=== PATIENT | female | born 1960 | race Caucasian/White ===

== ENCOUNTER → 2019-07-18 10:48 | Outpatient (BNVA) | payer BC, SELFPAY | PROVIDERS: Family Provider Internal Medicine; PCP Internal Medicine; Visit Provider Specialist | DX: G61.81 Chronic inflammatory demyelinating polyneuritis (principal); Z87.891 Personal history of nicotine dependence | CPT/HCPCS: 95970; 99214 ==

== ENCOUNTER → 2020-01-14 12:07 | Outpatient (BNVA) | payer BC, SELFPAY | PROVIDERS: Family Provider Internal Medicine; PCP Internal Medicine; Visit Provider Specialist | DX: G61.81 Chronic inflammatory demyelinating polyneuritis (principal); E53.8 Deficiency of other specified B group vitamins; F41.9 Anxiety disorder, unspecified; F32.9 Major depressive disorder, single episode, unspecified; Z98.1 Arthrodesis status; Z87.891 Personal history of nicotine dependence | CPT/HCPCS: 99214 ==

== ENCOUNTER → 2020-04-21 11:31 | Outpatient (BNVA) | payer BC, SELFPAY | PROVIDERS: Family Provider Internal Medicine; PCP Internal Medicine; Visit Provider Specialist | DX: G61.81 Chronic inflammatory demyelinating polyneuritis (principal); R20.0 Anesthesia of skin; Z87.891 Personal history of nicotine dependence | CPT/HCPCS: 95913 ==

== ENCOUNTER → 2020-07-30 10:55 | Outpatient (BNVA) | payer BC, SELFPAY | PROVIDERS: Family Provider Internal Medicine; PCP Internal Medicine; Visit Provider Internal Medicine Rheumatology | DX: G61.81 Chronic inflammatory demyelinating polyneuritis (principal); L93.0 Discoid lupus erythematosus; R76.8 Other specified abnormal immunological findings in serum; Z79.899 Other long term (current) drug therapy; Z11.59 Encounter for screening for other viral diseases; Z11.1 Encounter for screening for respiratory tuberculosis; Z13.820 Encounter for screening for osteoporosis; Z79.52 Long term (current) use of systemic steroids; M25.559 Pain in unspecified hip; I73.00 Raynaud's syndrome without gangrene; Z87.891 Personal history of nicotine dependence | CPT/HCPCS: 99204 ==

== ENCOUNTER 2020-07-30 12:59 | Outpatient (CLI) | payer BC, SELFPAY ==
--- NOTE | 2020-07-30 13:15 | XR_ITS ---
WS: [id number] XR pelvis 1-2V* 13432 REASON FOR EXAM: L93.0 - Discoid lupus erythematosus Unable to determine history more relevant to the examination. FINDINGS: Multiple surgical clips in the right lower quadrant. Lower abdominal bowel gas pattern is unremarkable. No retroperitoneal air. Degenerative spondylosis at L5-S1. Mild degenerative arthropathy in both hip joints. No focal bony pelvic abnormality. XR/XR pelvis 1-2V* [id number] IMPRESSION: No acute abnormality.
[2020-07-30 14:21] LABS: Basophils % 0.6 %; Eosinophils % 0.8 %; Hematocrit 38.2 % (37.0-47.0); Hemoglobin 12.6 g/dL (11.5-15.3); Lymphocytes # 0.9 10^3/uL (0.8-4.8); Lymphocytes % 18.4 %; Mean Corpuscular Hemoglobin 30.3 pg (28.0-34.0); Mean Corpuscular Volume 91.8 fL (81-99); Mean Platelet Volume 10.3 fL (7.4-10.4); Monocytes # 0.5 10^3/uL (0.2-0.9); Monocytes % 10.3 %; Neutrophils # 3.45 10^3/uL (1.8-7.7); Neutrophils % 69.7 %; Nucleated Red Blood Cells % 0 %; Platelet Count 202 10^3/cmm (130-400); Red Blood Count 4.16 10^6/uL (4.1-5.3); Red Cell Distribution Width 12.7 % (12.1-15.1)
[2020-07-30 14:44] LABS: Specific Gravity, Urine 1.005 (1.005-1.030); Urine Appearance Hazy (CLEAR); Urine Color Yellow (Yellow); pH Urine 7 (5-7)
[2020-07-30 14:45] LABS: Bilirubin Urine Neg (Negative); Blood Urine Neg (Negative); Glucose Urine UA Norm (Normal); Ketones Urine Negative (Negative); Leukocyte Esterase Urine Negative (Negative); Nitrate Urine Negative (Negative); Protein Urine Neg (Negative); Urobilinogen Urine Norm (Negative)
[2020-07-30 14:55] LABS: Urine Creatinine 66 mg/dL (28-217); Urine Protein Random 12 mg/dL
[2020-07-30 15:06] LABS: Add Urine Culture? No; Bacteria Urine TRACE /hpf; Squamous Epithelial Cell Urine 25-40 /hpf (0-5)
[2020-07-30 15:08] LABS: Hepatitis B Surface Antigen Non-Reactive (Nonreactive); Hepatitis C Virus Antibody Non-Reactive (Nonreactive)
[2020-07-30 15:10] LABS: 25 Hydroxy Vitamin D 15 ng/mL (30-100); Alanine Aminotransferase 7 U/L (0-33); Alkaline Phosphatase 110 IU/L (35-105); Aspartate Amino Transferase 16 U/L (0-32); C Reactive Protein 8.5 mg/L (0.0-4.9); Globulin 4.8 g/dL (1.3-4.6); Glomerular Filtration Rate 72.9 mL/min (90-130); Total Bilirubin 0.2 mg/dL (0.15-1.2); Total Protein 8.8 g/dL (6.6-8.7)
[2020-07-30 15:24] LABS: Erythrocyte Sedimentation Rate 93 mm/hr (0-15)
[2020-07-30 15:54] LABS: Hepatitis B Core AB, Total Reactive (Nonreactive)
[2020-07-31 14:58] LABS: THYROID PEROXIDASE ANTIBODIES 42 IU/mL (<9)
[2020-08-01 12:48] LABS: COMPLEMENT COMPONENT C3C 141 mg/dL (83-193); COMPLEMENT COMPONENT C4C 16 mg/dL (15-57); COMPLEMENT, TOTAL (CH50) >60 U/mL (31-60)
[2020-08-01 14:23] LABS: CENTROMERE B ANTIBODY <1.0 NEG AI (<1.0 NEG); JO-1 ANTIBODY <1.0 NEG AI (<1.0 NEG); Quantiferon Mitogen 7.22 IU/mL; Quantiferon Nil 0.02 IU/mL; Quantiferon TB Gold NEGATIVE (NEGATIVE); RNP ANTIBODY <1.0 NEG AI (<1.0 NEG); SCL-70 ANTIBODY <1.0 NEG AI (<1.0 NEG); SJOGREN'S ANTIBODY (SS-A) 1.1 POS AI (<1.0 NEG); SM ANTIBODY <1.0 NEG AI (<1.0 NEG); SS-B <1.0 NEG AI (<1.0 NEG)
[2020-08-04 14:37] LABS: ANA PATTERN Nuclear, Speckled; ANA SCREEN, IFA POSITIVE (NEGATIVE)
[2020-08-07 22:37] LABS: DNA AB (DS) CRITHIDIA,IFA NEGATIVE (NEGATIVE)
== END 2020-07-30 13:00 | disposition home or self-care (01) ==
PROVIDERS: PCP Internal Medicine; Visit Provider Internal Medicine Rheumatology
DX: L93.0 Discoid lupus erythematosus (principal); M25.559 Pain in unspecified hip; R76.8 Other specified abnormal immunological findings in serum; Z79.899 Other long term (current) drug therapy; Z11.59 Encounter for screening for other viral diseases; Z11.1 Encounter for screening for respiratory tuberculosis
CPT/HCPCS: 36415; 72170; 80076; 81001; 82306; 82565; 82570; 84156; 85025; 85651; 86140; 86160; 86162; 86235; 86255; 86376; 86480; 86704; 86803; 87340

== ENCOUNTER 2020-08-07 13:45 | Outpatient (CLI) | payer BC, SELFPAY ==
--- NOTE | 2020-08-07 13:51 | XR_ITS ---
WS: [id number] SCREENING DEXA SCAN [place] CLINICAL INFORMATION: Z79.52 - residential (current) use of systemic steroids COMPARISON: None. FINDINGS: The L1-L4 bone mineral density measures 0.731 g/cm2. This corresponds to a T score score of -3.7 and Z score of -2.5. Left femoral neck bone mineral density measures 0.656 g/cm2. This corresponds to a T score of -2.8 an d Z score of -1.8. Right femoral neck bone mineral density measures 0.649 g/cm2. This corresponds to a T score -2.8of an d Z score of -1.9. Mean femoral neck bone mineral density measures 0.653 g/cm2. This corresponds to a T score of -2.8 an d Z score of -1.8. XR/XR DEXA axial skeleton* [id number] IMPRESSION: Osteoporosis Patient's FRAX calculated 10 year probability for major osteoporotic fracture i s 39.2 % and osteoporotic hip fracture is 14.0%.
== END 2020-08-07 13:46 | disposition home or self-care (01) ==
LOC: RADWPI 13:50
PROVIDERS: PCP Internal Medicine; Visit Provider Internal Medicine Rheumatology
DX: M81.0 Age-related osteoporosis without current pathological fracture (principal); Z13.820 Encounter for screening for osteoporosis; Z79.52 Long term (current) use of systemic steroids
CPT/HCPCS: 77080

== ENCOUNTER 2020-08-07 15:51 | Outpatient (CLI) | payer BC, SELFPAY ==
[2020-08-08 13:18] LABS: Hepatitis B Virus DNA <10 NOT DETECTED IU/mL (NOT DETECTED); Hepatitis B Virus DNA PCR <1.00 NOT DETECTED Log IU/mL (NOT DETECTED)
== END 2020-08-07 15:52 | disposition home or self-care (01) ==
LOC: LAB 15:57
PROVIDERS: PCP Internal Medicine; Visit Provider Internal Medicine Rheumatology
DX: L93.0 Discoid lupus erythematosus (principal); R76.8 Other specified abnormal immunological findings in serum; Z79.899 Other long term (current) drug therapy; Z11.59 Encounter for screening for other viral diseases
CPT/HCPCS: 36415; 87517

== ENCOUNTER → 2020-09-16 12:40 | Outpatient (BNVA) | payer BC, SELFPAY | PROVIDERS: PCP Internal Medicine; Visit Provider Internal Medicine Rheumatology | DX: G61.81 Chronic inflammatory demyelinating polyneuritis (principal); L93.0 Discoid lupus erythematosus; Z79.899 Other long term (current) drug therapy; I73.00 Raynaud's syndrome without gangrene; M81.0 Age-related osteoporosis without current pathological fracture; M19.90 Unspecified osteoarthritis, unspecified site; Z87.891 Personal history of nicotine dependence | CPT/HCPCS: 99214 ==

== ENCOUNTER → 2020-09-23 12:37 | Outpatient (BNVA) | payer BC, SELFPAY | PROVIDERS: PCP Internal Medicine; Visit Provider Specialist | DX: G61.81 Chronic inflammatory demyelinating polyneuritis (principal); Z87.891 Personal history of nicotine dependence | CPT/HCPCS: 99215 ==

== ENCOUNTER 2020-10-30 13:58 | Outpatient (CLI) | payer BC, SELFPAY ==
[2020-10-30 14:16] VITALS: BP 107/73; PULSE 81; RESP 20; TEMP 36.6
[2020-10-30] MEDS: denosumab 60 mg SDV SUBCUT (14:42)
[2020-10-30 14:48] LABS: Basophils # 0.1 10^3/uL (0.0-0.1); Basophils % 0.9 %; Eosinophils # 0.1 10^3/uL (0.0-0.8); Eosinophils % 1.8 %; Lymphocytes # 1.4 10^3/uL (0.8-4.8); Lymphocytes % 20.7 %; Mean Corpuscular HGB Conc 34.2 g/dL (30.0-36.0); Mean Corpuscular Hemoglobin 30.8 pg (28.0-34.0); Mean Platelet Volume 10.2 fL (7.4-10.4); Monocytes # 0.6 10^3/uL (0.2-0.9); Monocytes % 8.9 %; Neutrophils # 4.51 10^3/uL (1.8-7.7); Neutrophils % 67.7 %; Nucleated Red Blood Cells % 0 %; Platelet Count 234 10^3/cmm (130-400); Red Blood Count 4.22 10^6/uL (4.1-5.3); Red Cell Distribution Width 12.2 % (12.1-15.1); White Blood Count 6.7 10^3/uL (4.0-10.0)
--- NOTE | 2020-10-30 15:20 | PC.NURSE ---
Peripheral labs from right ac using 21G needle and syringe, site cleaned with alcohol, betadine, alcohol. Patient tolerated well and site covered with sterile gauze, coban. dh
[2020-10-30 15:26] LABS: Alanine Aminotransferase < 5 U/L (0-33); Albumin Level 4.1 g/dL (3.5-5.2); Alkaline Phosphatase 111 IU/L (35-105); Aspartate Amino Transferase 16 U/L (0-32); C Reactive Protein 3.5 mg/L (0.0-4.9); Globulin 3.4 g/dL (1.3-4.6); Glomerular Filtration Rate 72.9 mL/min (90-130); Thyroid Stimulating Hormone 1.62 uIU/mL (0.27-4.20); Total Bilirubin 0.2 mg/dL (0.15-1.2); Total Protein 7.5 g/dL (6.6-8.7)
[2020-10-30 16:36] LABS: Free T4 Free Thyroxine 1.33 ng/dL (0.82-1.77)
== END 2020-10-30 13:59 | disposition home or self-care (01) ==
PROVIDERS: PCP Internal Medicine; Referring Provider Internal Medicine Rheumatology; Visit Provider Internal Medicine Rheumatology
DX: M81.0 Age-related osteoporosis without current pathological fracture (principal)
CPT/HCPCS: 36415; 80076; 82310; 82565; 84439; 84443; 85025; 86140; 96372; J0897

== ENCOUNTER → 2020-12-24 13:37 | Outpatient (BNVA) | payer BC, SELFPAY | PROVIDERS: PCP Internal Medicine; Visit Provider Internal Medicine Rheumatology | DX: G61.81 Chronic inflammatory demyelinating polyneuritis (principal); L93.0 Discoid lupus erythematosus; Z79.899 Other long term (current) drug therapy; M19.90 Unspecified osteoarthritis, unspecified site; M81.0 Age-related osteoporosis without current pathological fracture; Z71.89 Other specified counseling; Z87.891 Personal history of nicotine dependence | CPT/HCPCS: 99214 ==

== ENCOUNTER → 2021-02-09 13:26 | Outpatient (BNVA) | payer BC, SELFPAY | PROVIDERS: PCP Internal Medicine; Visit Provider Specialist | DX: G61.81 Chronic inflammatory demyelinating polyneuritis (principal); Z87.891 Personal history of nicotine dependence | CPT/HCPCS: 99215 ==

== ENCOUNTER → 2021-04-06 12:54 | Outpatient (BNVA) | payer BC, SELFPAY | PROVIDERS: PCP Internal Medicine; Visit Provider Internal Medicine Rheumatology | DX: L93.0 Discoid lupus erythematosus (principal); Z79.899 Other long term (current) drug therapy; M19.90 Unspecified osteoarthritis, unspecified site; Z71.89 Other specified counseling; I73.00 Raynaud's syndrome without gangrene | CPT/HCPCS: 36415; 80076; 81001; 82040; 82306; 82310; 82565; 84156; 84443; 85025; 86140; 87077; 87086; 87186 ==

== ENCOUNTER 2021-05-04 13:12 | Outpatient (CLI) | payer BC, SELFPAY ==
[2021-05-04 13:27] VITALS: BP 105/74; PULSE 80; RESP 18; TEMP 36.3; O2SAT 97
[2021-05-04] MEDS: denosumab 60 mg SDV SUBCUT (13:33)
[2021-05-04 13:42] VITALS: BP 124/85; PULSE 80; RESP 18; TEMP 36.8; O2SAT 96
== END 2021-05-04 13:13 | disposition home or self-care (01) ==
LOC: ONCMED 13:19
PROVIDERS: PCP Internal Medicine; Visit Provider Internal Medicine Rheumatology
DX: M81.0 Age-related osteoporosis without current pathological fracture (principal)
CPT/HCPCS: 96372; J0897

== ENCOUNTER 2021-11-04 10:57 | Outpatient (CLI) | payer BC, SELFPAY ==
[2021-11-04 12:07] VITALS: BP 118/83; PULSE 67; RESP 18; TEMP 36.1; O2SAT 95
[2021-11-04] MEDS: denosumab 60 mg SDV SUBCUT (12:14)
[2021-11-04 12:19] LABS: 25 Hydroxy Vitamin D 19 ng/mL (30-100); Albumin Level 4.1 g/dL (3.5-5.2); Calcium 8.9 mg/dL (8.5-10.5)
[2021-11-04 12:22] VITALS: BP 126/83; PULSE 70; RESP 18; TEMP 36.3; O2SAT 95
== END 2021-11-04 10:58 | disposition home or self-care (01) ==
PROVIDERS: PCP Internal Medicine; Referring Provider Internal Medicine Rheumatology; Visit Provider Internal Medicine Rheumatology
DX: M81.0 Age-related osteoporosis without current pathological fracture (principal)
CPT/HCPCS: 36415; 82040; 82306; 82310; 96372; J0897

== ENCOUNTER → 2021-12-17 12:55 | Outpatient (BNVA) | payer BC, SELFPAY | PROVIDERS: PCP Internal Medicine; Visit Provider Internal Medicine Rheumatology | DX: M54.6 Pain in thoracic spine (principal); M19.90 Unspecified osteoarthritis, unspecified site; Z98.1 Arthrodesis status; L93.0 Discoid lupus erythematosus; I73.00 Raynaud's syndrome without gangrene; Z79.899 Other long term (current) drug therapy; Z71.89 Other specified counseling; G61.81 Chronic inflammatory demyelinating polyneuritis | CPT/HCPCS: 72070 ==

== ENCOUNTER 2022-05-04 13:11 | Outpatient (CLI) | payer BC, SELFPAY ==
[2022-05-04 13:50] LABS: Basophils # 0.1 10^3/uL (0.0-0.1); Eosinophils # 0.1 10^3/uL (0.0-0.8); Eosinophils % 2.4 %; Hemoglobin 13.4 g/dL (11.5-15.3); Lymphocytes # 1.9 10^3/uL (0.8-4.8); Lymphocytes % 31.3 %; Mean Corpuscular HGB Conc 33.5 g/dL (30.0-36.0); Mean Corpuscular Hemoglobin 30.3 pg (28.0-34.0); Mean Corpuscular Volume 90.5 fl (81-99); Mean Platelet Volume 10.2 fL (7.4-10.4); Monocytes # 0.5 10^3/uL (0.2-0.9); Neutrophils # 3.32 10^3/uL (1.8-7.7); Neutrophils % 56.1 %; Nucleated Red Blood Cells % 0 %; Platelet Count 215 10^3/cmm (130-400); Red Blood Count 4.42 10^6/uL (4.1-5.3); Red Cell Distribution Width 12.9 % (12.1-15.1); White Blood Count 5.9 10^3/uL (4.0-10.0)
[2022-05-04 14:19] LABS: Alanine Aminotransferase 9 U/L (0-33); Albumin Level 4.1 g/dL (3.5-5.2); Alkaline Phosphatase 85 U/L (35-105); Aspartate Amino Transferase 17 U/L (0-32); Calcium 9.6 mg/dL (8.5-10.5); Globulin 3.9 g/dL (1.3-4.6); Glomerular Filtration Rate 63.2 mL/min (90-130); Total Bilirubin 0.2 mg/dL (0.15-1.2)
[2022-05-04 14:35] LABS: 25 Hydroxy Vitamin D 19 ng/mL (30-100)
== END 2022-05-04 13:12 | disposition home or self-care (01) ==
LOC: LAB 13:14
PROVIDERS: PCP Internal Medicine; Visit Provider Internal Medicine Rheumatology
DX: L93.0 Discoid lupus erythematosus (principal); M19.90 Unspecified osteoarthritis, unspecified site; Z79.899 Other long term (current) drug therapy
CPT/HCPCS: 80076; 82306; 82310; 82565; 85025; 86140

== ENCOUNTER 2022-05-13 09:31 | Outpatient (CLI) | payer BC, SELFPAY ==
[2022-05-13 09:43] VITALS: BP 117/79; PULSE 75; RESP 18; TEMP 37.5; O2SAT 98
[2022-05-13] MEDS: denosumab 60 mg SDV SUBCUT (09:59)
[2022-05-13 10:11] VITALS: BP 135/98; PULSE 72; RESP 18; TEMP 36.9; O2SAT 98
== END 2022-05-13 09:32 | disposition home or self-care (01) ==
LOC: ONCMED 09:33
PROVIDERS: PCP Internal Medicine; Visit Provider Internal Medicine Rheumatology
DX: M81.0 Age-related osteoporosis without current pathological fracture (principal)
CPT/HCPCS: 96372; J0897

== ENCOUNTER → 2022-12-01 12:09 | Outpatient (BNVA) | payer BC, SELFPAY | PROVIDERS: PCP Internal Medicine; Visit Provider Internal Medicine Rheumatology | DX: L93.0 Discoid lupus erythematosus (principal); I73.00 Raynaud's syndrome without gangrene; G61.81 Chronic inflammatory demyelinating polyneuritis; Z71.89 Other specified counseling; Z79.899 Other long term (current) drug therapy | CPT/HCPCS: 36415; 80076; 82306; 82310; 82565; 85025; 86140 ==

== ENCOUNTER → 2023-10-18 16:34 | Outpatient (BNVA) | payer BC, SELFPAY | PROVIDERS: PCP Internal Medicine; Visit Provider Internal Medicine Rheumatology | DX: M19.90 Unspecified osteoarthritis, unspecified site (principal); Z79.899 Other long term (current) drug therapy; R79.89 Other specified abnormal findings of blood chemistry; L93.0 Discoid lupus erythematosus; I73.00 Raynaud's syndrome without gangrene; G61.81 Chronic inflammatory demyelinating polyneuritis; Z71.89 Other specified counseling | CPT/HCPCS: 36415; 80076; 82306; 82310; 82565; 82652; 83735; 84100; 84132; 85025; 86140 ==

== ENCOUNTER → 2024-02-23 15:21 | Outpatient (BNVA) | payer BC, SELFPAY | PROVIDERS: PCP Internal Medicine; Visit Provider Internal Medicine Rheumatology | DX: L93.0 Discoid lupus erythematosus (principal); Z79.899 Other long term (current) drug therapy | CPT/HCPCS: 36415; 80076; 82306; 82310; 82565; 85025; 85651; 86140 ==

== ENCOUNTER 2024-04-09 13:42 | Outpatient (CLI) | payer BC, SELFPAY ==
--- NOTE | 2024-04-09 14:00 | XR_ITS ---
WS: [id number] DEXA (DUAL ENERGY X-RAY ABSORPTIOMETRY) Bone mineral density was performed using a [employer] machine. HISTORY: M81.0 - Age-related osteoporosis without current patholog... COMPARISON: 08/07/2020 Lumbar spine BMD (L1-L4): 0.709 g/cm2 T score: -3.9 Z score: -1.8 Total hip BMD: Left: 0.612 g/cm2. T score: -3.1 Z score: -1.5 Right: 0.588 g/cm2. T score: -3.3 Z score: -1.7 10 year probability of a major osteoporotic fracture is 47.2%. Compared to the prior study from 08/07/2020. Lumbar spine bone mineral density has decreased by 3.0%. Bilateral hips bone mineral density has decreased by 8.1%. XR/XR DEXA axial skeleton* [id number] IMPRESSION: OSTEOPOROSIS based upon the WHO classification for females. Significant decrease in bone mineral density within both the lumbar spine and h ips since the prior study.
== END 2024-04-09 13:43 | disposition home or self-care (01) ==
LOC: RAD 13:43
PROVIDERS: PCP Internal Medicine; Visit Provider Internal Medicine Rheumatology
DX: Z13.820 Encounter for screening for osteoporosis (principal); M81.0 Age-related osteoporosis without current pathological fracture
CPT/HCPCS: 77080

== ENCOUNTER 2024-07-25 13:46 | Oncology outpatient (recurring) (ONCR) | payer MEDICARE, BC, SELFPAY ==
[2024-07-25] MEDS: denosumab 60 mg SDV SUBCUT (14:21)
[2024-07-25 14:35] VITALS: BP 118/78; PULSE 76; RESP 16; TEMP 36.8; O2SAT 96
== END 2024-08-13 23:59 | disposition home or self-care (01) ==
PROVIDERS: PCP Internal Medicine; Visit Provider Internal Medicine Rheumatology
DX: M13.80 Other specified arthritis, unspecified site (principal); Z79.899 Other long term (current) drug therapy
CPT/HCPCS: 96372; J0897

== ENCOUNTER → 2024-09-20 09:12 | Outpatient (BNVA) | payer MEDICARE, BC, SELFPAY | PROVIDERS: PCP Internal Medicine; Visit Provider Specialist | DX: G61.81 Chronic inflammatory demyelinating polyneuritis (principal); Z98.1 Arthrodesis status; R51.9 Headache, unspecified | CPT/HCPCS: 99214 ==

== ENCOUNTER → 2024-12-27 13:18 | Outpatient (BNVA) | payer MEDICARE, BC, SELFPAY | PROVIDERS: PCP Internal Medicine; Visit Provider Internal Medicine Rheumatology | DX: L93.0 Discoid lupus erythematosus (principal); I73.00 Raynaud's syndrome without gangrene; G61.81 Chronic inflammatory demyelinating polyneuritis; Z79.899 Other long term (current) drug therapy; Z71.85 Encounter for immunization safety counseling | CPT/HCPCS: 99214 ==

== ENCOUNTER 2025-01-09 12:45 | Outpatient (CLI) | payer MEDICARE, BC, SELFPAY ==
[2025-01-09 14:39] LABS: Albumin Level 4.2 g/dL (3.5-5.2); Calcium 9.2 mg/dL (8.5-10.5)
== END 2025-01-09 12:46 | disposition home or self-care (01) ==
PROVIDERS: PCP Internal Medicine; Visit Provider Internal Medicine Rheumatology
DX: Z79.899 Other long term (current) drug therapy (principal)
CPT/HCPCS: 36415; 82040; 82306; 82310; 82565

== ENCOUNTER 2025-01-21 13:39 | Oncology outpatient (recurring) (ONCR) | payer MEDICARE, BC, SELFPAY ==
[2025-01-21] MEDS: denosumab 60 mg SDV (Infusion Clinic Only) SUBCUT (14:01)
== END 2025-02-12 23:59 | disposition home or self-care (01) ==
LOC: ONCMED 13:39
PROVIDERS: PCP Internal Medicine; Visit Provider Internal Medicine Rheumatology
DX: M13.80 Other specified arthritis, unspecified site (principal); Z79.899 Other long term (current) drug therapy
CPT/HCPCS: 96372; J0897

== ENCOUNTER → 2025-05-14 12:59 | Outpatient (BNVA) | payer MEDICARE, BC, SELFPAY | PROVIDERS: PCP Internal Medicine; Visit Provider Internal Medicine Rheumatology | DX: L93.0 Discoid lupus erythematosus (principal); I73.00 Raynaud's syndrome without gangrene; G61.81 Chronic inflammatory demyelinating polyneuritis; Z79.899 Other long term (current) drug therapy; Z71.85 Encounter for immunization safety counseling | CPT/HCPCS: 99214 ==